=== PATIENT | female | born 1990 | race Caucasian/White ===

== ENCOUNTER 2024-03-07 19:34 | Emergency (ER) | payer OTHER ==
[2024-03-07 20:25] LABS: #Basophils 0.08 10x3/uL (0.0-0.2); %Basophils 0.9 % (0.0-1.0); %Eosinophils 0.8 % (0.0-10.0); %Lymphocytes 16.5 % (21.0-51.0); %Monocytes 5.3 % (0.0-10.0); %Neutrophils 76.3 % (42.0-75.0); Hematocrit 34.7 % (36.0-47.0); Hemoglobin 11.7 g/dL (12.0-16.0); Mean Corpuscular HGB CONC 33.7 g/dL (32.0-36.0); Mean Corpuscular Hemoglobin 28.5 pg (27.0-31.0); Mean Corpuscular Volume 84.6 fL (78.0-98.0); Platelet Count 305 10x3/uL (130-400); RBC Distribution Width 13.1 % (11.5-14.5)
[2024-03-07 20:28] LABS: Bacteria/HPF None Seen HPF (None Seen); Bilirubin Negative (Negative); Blood, Urine Negative (Negative); CAUTI Indications for Culture Dysuria,urgency,freq; Clarity Clear (Clear); Glucose, Urine (Dipstick) Normal (Negative); Ketone, Urine Negative (Negative); Leukocyte Negative Leu/uL (Negative); Nitrite Negative (Negative); Pregnancy Test - Urine (BHCG) Negative (Negative); Pregu Control Background? CLEAR/WHITE (CLR/WHITE); Pregu Control Bar Appear? YES (CONTROL BAR); Protein, Urine (Dipstick) Negative (Neg-Trace); RBC/HPF 0-3 HPF (0-3); Specific Gravity 1.003 (1.002-1.036); Specific Gravity, Urine 1.003 (1.002-1.036); Squamous Epithelial 0-3 HPF (0-3); Urobilinogen Normal mg/dL (Less than 2); WBC/HPF None Seen HPF (0-3)
[2024-03-07 20:29] LABS: Urine Culture Reflex No No
[2024-03-07 20:43] LABS: ALT (SGPT) 9 U/L (8-55); AST (SGOT) 15 U/L (5-34); Albumin 3.9 g/dL (3.5-5.0); Alkaline Phosphatase 73 U/L (40-110); Anion Gap 13 mmol/L (10-20); BUN (Urea Nitrogen) 12 mg/dL (7.0-18.7); Bilirubin, Total 0.2 mg/dL (0.2-1.2); Calc. Creatinine Clearance 0 mL/min (70-130); Calcium 9.5 mg/dL (7.8-10.44); Carbon Dioxide 22 mmol/L (22-29); Chloride 107 mmol/L (98-107); Estimated GFR 84; Glucose 118 mg/dL (70-105); Lipase 14 U/L (8-78); Potassium 3.7 mmol/L (3.5-5.1); Protein, Total 6.9 g/dL (6.0-8.3); Sodium 138 mmol/L (136-145)
[2024-03-07] MEDS ORDERED: Ondansetron PF 4 MG/2 ML Vial ONE (21:29)
[2024-03-07] MEDS ORDERED: Pantoprazole 40 MG VIAL ONE (21:29)
[2024-03-07] MEDS ORDERED: Mag-Al 1200 mg/1200 mg/30 ML UDCUP ONE (21:29)
[2024-03-07] MEDS ORDERED: Lidocaine Viscous Sol 2% 15 ml UD Cup ONE (21:29)
[2024-03-07 21:37] LABS: Troponin I Less than 0.010 ng/mL (< 0.028)
== END 2024-03-07 22:26 ==
LOC: ERS 19:34
DX: K29.00 Acute gastritis without bleeding (principal)
CPT/HCPCS: 36415; 76705; 80053; 81001; 81025; 83690; 84484; 85025; 93005; 96374; 96375; J2405; J2470

== ENCOUNTER 2024-11-03 13:56 | Outpatient (CLI) | payer OTHER | END 2024-11-03 13:57 | disposition home or self-care (01) | LOC: ULT 13:56 → EEVIPCON 13:56 → ULT 13:57 | PROVIDERS: ATTEND Family Medicine | DX: N92.6 Irregular menstruation, unspecified (principal); N83.201 Unspecified ovarian cyst, right side | CPT/HCPCS: 76856 ==